=== PATIENT | male | born 1955 | race Caucasian/White ===

== ENCOUNTER → 2024-06-07 07:43 | Outpatient (REF) | payer OTHER, SELFPAY | LOC: DHVS 07:43 | PROVIDERS: ATTENDING PHYSICIAN Surgery Vascular Surgery; FAMILY PHYSICIAN Family Medicine | DX: I73.9 Peripheral vascular disease, unspecified (principal) | CPT/HCPCS: 93922; 93925; 93978 ==

== ENCOUNTER → 2024-12-19 07:31 | Outpatient (REF) | payer OTHER, SELFPAY | LOC: RAD 07:31 | PROVIDERS: ATTENDING PHYSICIAN Surgery Vascular Surgery; FAMILY PHYSICIAN Family Medicine | DX: I73.9 Peripheral vascular disease, unspecified (principal); I65.23 Occlusion and stenosis of bilateral carotid arteries | CPT/HCPCS: 93880; 93922; 93925; 93978 ==

== ENCOUNTER → 2025-06-24 07:33 | Outpatient (REF) | payer OTHER, SELFPAY | LOC: RAD 07:33 | PROVIDERS: ATTENDING PHYSICIAN Physician Assistant; FAMILY PHYSICIAN Family Medicine | DX: I73.9 Peripheral vascular disease, unspecified (principal) | CPT/HCPCS: 93922; 93925; 93978 ==

== ENCOUNTER 2025-07-21 06:06 | Day surgery (SDC) | payer OTHER, SELFPAY ==
[2025-07-15 09:11] VITALS: BMI 27.0
[2025-07-15 09:55] LABS: Hematocrit 49.4 % (39.0-52.0); Hemoglobin 17.1 g/dL (13.0-18.0); Mean Corp Hgb Conc. 34.6 g/dL (33.0-37.0); Mean Corpuscular Volume 88.8 fL (80.0-94.0); Nucleated Red Blood Cells % 0 % (-); Platelet Count 204 10^3/uL (130-400); Red Cell Dist. Width 13.6 % (11.5-14.5)
[2025-07-15 10:04] LABS: INR 0.92; PT 12.7 Sec (11.4-14.6)
[2025-07-15 10:05] LABS: APTT 26.2 Sec (23.4-35.0)
[2025-07-15 10:42] LABS: Blood Urea Nitrogen 10 mg/dl (9-20); Calcium 11.1 mg/dl (8.4-10.2); Carbon Dioxide 25 mmol/L (22-30); Chloride 104 mmol/L (98-107); Estimated Creatinine Clearance 93 ml/min; Glucose 129 mg/dl (70-99); Potassium 4.5 mmol/L (3.5-5.1); Sodium 139 mmol/L (135-145); eGFR > 60.00
--- NOTE | 2025-07-16 16:48 | PTCARENOTE ---
Abnormal ECG done 07/15/25, reviewed by Dr Cantrell, no further intervention needed.
[2025-07-21] VITALS (19 sets, daily range): BP systolic 108–164; BP diastolic 76–119
[2025-07-21] MEDS: NSS 270 IV (06:36)
--- NOTE | 2025-07-21 07:00 | W.SUR.PREOP ---
Pre-Operative Surgical Note
-
I have examined this patient prior to the performance of the scheduled procedure.
The patient's condition is unchanged from the time of the current History and
Physical and the patient is able to undergo the scheduled procedure.
--- NOTE | 2025-07-21 08:25 | W.SUR.POST ---
Surgical Immediate Post Op
Note
Pre Op Diagnosis: PAD
Post Op Diagnosis: PAD
Procedure Performed: RLE arteriogram, balloon angioplasty/stent to right SFA, balloon angioplasty to external iliac in-stent restenosis
Primary Surgeon: Alvaro
Anesthesia: local and sedation
Estimated Blood Loss: <2cc
Fluids: see anesthesia flow sheet
Drains/Shunts: none
Specimens/Cultures: none
Doppler/Duplex/Angio (Y/N): Y
Complications: none
Operative Findings: Successful stent placement
--- NOTE | 2025-07-21 08:53 | OR.RPT ---
Operative Report
Operative Report
PROCEDURE DATE: 07/21/2025
Preoperative diagnosis:
1. Debilitating recurrent right calf claudication.
2. Severe peripheral arterial disease status post prior right to left femoral to femoral artery bypass, right common and external iliac artery stenting.
Postoperative diagnosis: Same
Procedure:
1. Duplex assisted cannulation of left common femoral artery/femoral to femoral bypass hernandez.
2. Right lower extremity arteriogram.
3. Balloon angioplasty and stent placement of severe right mid to distal SFA stenosis with [employer] Zilver PTX 6 mm x 4 cm drug-eluting self-expanding stent.
4. Aortogram and pelvic angiogram.
5. Balloon angioplasty of right external iliac artery in-stent restenosis.
6. Left femoral angiogram.
7. Supervision and interpretation.
Surgeon: John
Metal Finisher: None
Complications: None
Anesthesia: Local, sedation
Fluoroscopy:
9.5 min
138 mGy
29.78 gy.cm2
Indications for procedure:
Recurrent severe right calf claudication. Duplex demonstrated finding of right SFA stenosis. Potentially inflow stenosis as well though not definitive. Therefore discussed angiography. Risk/benefits/alternatives were also discussed. Patient
understood and wished to proceed.
Description of procedure:
Patient was identified, brought to the operating room. Placed on the table in the supine position. After the adequate administration of anesthesia, the patient was prepped and draped in the standard surgical fashion. A standard preoperative
timeout was undertaken and everybody was in agreement with the plan.
The left common femoral artery/hernandez of the femoral to femoral artery bypass graft was accessed with a micropuncture kit under direct duplex ultrasound guidance. A 5 [place] sheath was then advanced over a 0.035 inch wire (a [employer] wire was used to
provide some stiffness given the scarred groin). Right lower extremity arteriogram was then performed. Findings were as follows:
Common femoral artery: Patent with luminal irregularities, but no significant stenosis. Initially on the AP projection it appeared that there may have been a stenosis, but right anterior oblique was able to open up the femoral bifurcation and
demonstrate that there was just luminal irregularities with no significant stenosis.
Profunda femoris artery: Patent with no significant stenosis.
Superficial femoral artery: Patent with no significant stenosis through the proximal two thirds. Then more distally there was a severe focal near occlusive string-like stenosis.
Popliteal artery: Patent with no significant stenosis.
Anterior tibial artery: Chronically occluded (appeared patent at the origin, but occluded within 3 to 4 cm). No reconstitution distally noted.
Tibial peroneal trunk: Patent with no significant stenosis.
Peroneal artery: Patent but relatively poor distal filling.
Posterior tibial artery: Patent with no significant stenosis, dominant runoff vessel to the foot.
At this point I selectively cannulated the superficial femoral artery and then exchanged for a Storq wire in the SFA. I then exchanged for a 6 [place] 45 cm Ansell sheath which was advanced well into the SFA. 7000's of intravenous heparin was
administered. Now under roadmap assisted guidance, I was able to traverse the area of severe stenosis in the SFA using a flopping of hydrophilic wire and a glide catheter. I advanced the catheter past the stenosis, staying true lumenally, and
performed angiography to confirm that I was within the true lumen. Now, I advanced a [employer] Zilver PTX 6 mm x 4 cm self-expanding drug-eluting stent. This was deployed across the area of stenosis. Post angioplasty with a 5 mm angioplasty balloon.
Completion angiogram demonstrated excellent result with no residual stenosis (complete resolution). Patent flow through the runoff. At this point I was satisfied.
I now used a glide catheter and a flopping of hydrophilic wire to cannulate the right iliac system retrograde. With some difficulty across the common femoral retrograde angulation I was able to do so. Angiography now was done after advanced the
catheter into the aorta/common iliac artery on the right. This demonstrated patent distal infrarenal aorta and patent right common iliac artery without any in-stent restenosis. Distally in the external iliac artery it appeared in 1 obliquity that
there may have been a moderate in-stent restenosis in the second of the overlapping external iliac artery stents. I therefore then exchanged for a Storq wire and then performed angioplasty with a 6 mm balloon. There was no waist in the balloon
whatsoever it expanded nicely. Completion angiogram now demonstrated the same finding. However now I thought maybe this was just plaque outside of the stents that was being picked up on the AP view. I therefore then obliqued the gantry and
performed another angiogram that demonstrated the stenosis to be significantly less. Therefore I think it was just plaque outside the stent. (Catheters, wires all went through the area without any difficulty, and balloon had also demonstrated no
waste. And in addition in reviewing ultrasounds preprocedurally, these demonstrated multiphasic common femoral waveforms). Therefore at this point I was satisfied. Wires and catheters were withdrawn. Left femoral angiography demonstrated good
puncture in the hernandez of the left femoral to femoral bypass/common femoral artery. Patent left common femoral and profunda. The left superficial femoral artery was also patent throughout its course with in the mid to distal segment a area of mild
luminal irregularity with mild to moderate stenosis but not severe. At this point, the sheath was withdrawn and manual pressure was applied to the puncture site. Protamine was also given to reverse the heparin. Hemostasis was fully achieved. The
patient tolerated the procedure well. Upon completion he had a palpable right posterior tibial pulse. He was transported the recovery room in stable condition.
[2025-07-21] MEDS: NSS 500 IV ×2 (10:23→11:15)
[2025-07-21] MEDS: NSS 1000 IV (11:16)
== END 2025-07-21 14:45 | disposition home or self-care (01) ==
LOC: CATH 06:06
PROVIDERS: ATTENDING PHYSICIAN Surgery Vascular Surgery; PRIMARYCARE PHYSICIAN Family Medicine
DX: I70.211 Atherosclerosis of native arteries of extremities with intermittent claudication, right leg (principal); T82.856A Stenosis of peripheral vascular stent, initial encounter; Y83.1 Surgical operation with implant of artificial internal device as the cause of abnormal reaction of the patient, or of later complication, without mention of misadventure at the time of the procedure; Y71.3 Surgical instruments, materials and cardiovascular devices (including sutures) associated with adverse incidents; I65.23 Occlusion and stenosis of bilateral carotid arteries; Z79.02 Long term (current) use of antithrombotics/antiplatelets; Z79.82 Long term (current) use of aspirin; Z79.899 Other long term (current) drug therapy
CPT/HCPCS: 37226; 37220; 36415; 75625; 75710; 76937; 80048; 85025; 85610; 85730; 86850; 86900; 86901; 93005; C1725; C1769; C1874; C1887; C1894; Q9967

== ENCOUNTER → 2025-08-20 08:42 | Outpatient (REF) | payer OTHER, SELFPAY | LOC: DHVS 08:42 | PROVIDERS: ATTENDING PHYSICIAN Surgery Vascular Surgery; FAMILY PHYSICIAN Family Medicine | DX: I73.9 Peripheral vascular disease, unspecified (principal) | CPT/HCPCS: 93922; 93925; 93978 ==